=== PATIENT | female | born 1945 | race Caucasian/White ===

== ENCOUNTER → 2016-09-02 | Outpatient (CLI) | payer OTHER | LOC: MOB LAB 09:35 | PROVIDERS: ATTEND Physician Assistant | DX: N39.0 Urinary tract infection, site not specified (principal); R82.99 Other abnormal findings in urine | CPT/HCPCS: 87077; 87088; 87186 ==

== ENCOUNTER → 2016-11-18 | Outpatient (CLI) | payer OTHER | LOC: MOB LAB 10:21 | DX: N39.0 Urinary tract infection, site not specified (principal); R82.99 Other abnormal findings in urine | CPT/HCPCS: 81002; 87077; 87088; 87186 ==